=== PATIENT | female | born 2000 | race Caucasian/White ===

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

== ENCOUNTER 2020-12-19 11:32 | Emergency (ER) | payer OTHER ==
[2020-12-19 11:40] VITALS: BP 118/77; PULSE 76; TEMP 98.2; BMI 24.7
[2020-12-19] MEDS ORDERED: SODIUM CHLORIDE 1,000 ML IV STA (12:18)
[2020-12-19] MEDS ORDERED: ACETAMINOPHEN 1000 MG/100 ML VIAL (NON FORMULARY) IVPB ONE (12:18)
[2020-12-19] MEDS ORDERED: MAG HYDROX/AL HYDROX/SIMETH -MYLANTA- ORAL SUSPENSION PO ONE (12:21)
[2020-12-19] MEDS ORDERED: FAMOTIDINE 20 MG/50 ML IVPB 20 MG/50 ML MG IVPB ONE ×2 (12:21→12:53)
[2020-12-19] MEDS ORDERED: ACETAMINOPHEN INJECTION 100 ML IVPB ONE (12:25)
[2020-12-19] MEDS ORDERED: MAG HYDROX/AL HYDROX/SIMETH 30 ML UNIT-DOSE CUP ONE (12:53)
[2020-12-19 13:11] LABS: HEMATOCRIT 40.3 % (32.4-45.2); HEMOGLOBIN 13.7 GM/dL (10.7-15.3); LYMPH % 36.4 % (8-40); MCH 30.7 pg (25.7-33.7); MCHC 34.1 g/dl (32.0-36.0); MEAN PLT VOLUME 9.3 fl (7.5-11.1); MONO % 7.6 % (3.8-10.2); PLATELET COUNT 267 K/MM3 (134-434); RBC 4.48 M/mm3 (3.60-5.2); RDW 12.8 % (11.6-15.6); WHITE BLOOD COUNT 4.1 K/mm3 (4.0-10.0)
[2020-12-19 13:13] LABS: EPI CELLS 10 /uL (0-25.1); HYALINE CASTS 1 /uL (0-3.1); PH,URINE 5.5 (5.0-8.0); URINE APPEARANCE CLEAR; URINE BACTERIA 3045 /uL (0-1359); URINE BILIRUBIN NEGATIVE (NEGATIVE); URINE COLOR YELLOW; URINE GLUCOSE (UA) NEGATIVE (NEGATIVE); URINE KETONE TRACE (NEGATIVE); URINE LEUK ESTERASE 1+ (NEGATIVE); URINE NITRITE NEGATIVE (NEGATIVE); URINE PROTEIN NEGATIVE (NEGATIVE); URINE RBC 1105 /uL (0-23.9); URINE WBC 92 /uL (0-25.8)
[2020-12-19 13:17] LABS: HCG,QUALITATIVE URINE Negative
[2020-12-19 13:31] LABS: ALBUMIN 4.4 g/dl (3.4-5.0); CALCIUM 9.5 mg/dL (8.5-10.1)
[2020-12-19 13:32] LABS: BLOOD UREA NITROGEN 8.2 mg/dL (7-18)
[2020-12-19 13:34] LABS: CREATININE 0.7 mg/dL (0.55-1.3)
[2020-12-19 13:37] LABS: BILIRUBIN,TOTAL 0.6 mg/dL (0.2-1)
== END 2020-12-19 14:30 | disposition home or self-care (01) ==
LOC: JER 11:32
PROC: 3E0333Z Introduction of Anti-inflammatory into Peripheral Vein, Percutaneous Approach (ICD-10-PCS; principal; 2020-12-19)
PROC: 3E033GC Introduction of Other Therapeutic Substance into Peripheral Vein, Percutaneous Approach (ICD-10-PCS; 2020-12-19)
PROC: 3E0337Z Introduction of Electrolytic and Water Balance Substance into Peripheral Vein, Percutaneous Approach (ICD-10-PCS; 2020-12-19)
DX: K80.20 Calculus of gallbladder without cholecystitis without obstruction (principal)
CPT/HCPCS: 36415; 76705-TC; 80053; 81003; 83690; 84703; 85025; 87086; 87186; 99284-25; J0131

== ENCOUNTER 2020-12-30 03:32 | Emergency (ER) | payer OTHER ==
[2020-12-30] MEDS ORDERED: ACETAMINOPHEN 1000 MG/100 ML VIAL (NON FORMULARY) IVPB ONE (03:47)
[2020-12-30] MEDS ORDERED: ONDANSETRON 4 MG/2 ML VIAL IVPUSH ONE (03:47)
[2020-12-30] MEDS ORDERED: SODIUM CHLORIDE 0.9% 500 ML INFUS.BAG IV ONE (03:47)
[2020-12-30] MEDS ORDERED: FAMOTIDINE 20 MG/50 ML IVPB 20 MG/50 ML MG IVPB ONE ×2 (03:47→04:09)
[2020-12-30] MEDS ORDERED: ACETAMINOPHEN INJECTION 100 ML IVPB ONE (03:51)
[2020-12-30] MEDS ORDERED: ONDANSETRON 4 MG/2 ML VIAL ONE (03:51)
[2020-12-30 04:12] VITALS: BMI 26.5
[2020-12-30 04:13] LABS: BASO % 0.6 % (0-2.0); EOS % 1.3 % (0-4.5); HEMATOCRIT 36.8 % (32.4-45.2); HEMOGLOBIN 12.6 GM/dL (10.7-15.3); LYMPH % 29.5 % (8-40); MCH 31.1 pg (25.7-33.7); MCHC 34.4 g/dl (32.0-36.0); MEAN CELL VOLUME 90.4 fl (80-96); MEAN PLT VOLUME 9.5 fl (7.5-11.1); NEUT % 63.6 % (42.8-82.8); PLATELET COUNT 214 K/MM3 (134-434); RBC 4.06 M/mm3 (3.60-5.2); WHITE BLOOD COUNT 6.4 K/mm3 (4.0-10.0)
[2020-12-30 04:19] LABS: INR 1.12 (0.83-1.09); PROTHROMBIN TIME (PATIENT) 13.7 SEC (9.7-13.0)
[2020-12-30 04:22] LABS: ACTIVATED PTT 26.4 SECONDS (25.2-36.5)
[2020-12-30 04:27] LABS: BLOOD UREA NITROGEN 7.9 mg/dL (7-18); CALCIUM 8.8 mg/dL (8.5-10.1)
[2020-12-30 04:30] LABS: CREATININE 0.7 mg/dL (0.55-1.3)
[2020-12-30 04:32] LABS: BILIRUBIN,TOTAL 0.3 mg/dL (0.2-1); TOT PROT 7.2 g/dl (6.4-8.2)
[2020-12-30 08:38] VITALS: BP 124/72; PULSE 87; TEMP 98.3
== END 2020-12-30 11:05 ==
LOC: JER 03:32
PROC: 3E0333Z Introduction of Anti-inflammatory into Peripheral Vein, Percutaneous Approach (ICD-10-PCS; principal; 2020-12-30)
PROC: 3E033GC Introduction of Other Therapeutic Substance into Peripheral Vein, Percutaneous Approach (ICD-10-PCS; 2020-12-30)
PROC: 3E033GC Introduction of Other Therapeutic Substance into Peripheral Vein, Percutaneous Approach (ICD-10-PCS; 2020-12-30)
DX: K80.80 Other cholelithiasis without obstruction (principal); R10.84 Generalized abdominal pain
CPT/HCPCS: 36415; 76705-TC; 80053; 83605; 83690; 83735; 84703; 85025; 85610; 85730; 86769; 86850; 86900; 86901; 99284-25; C9803; J0131; U0003; U0005